=== PATIENT | male | born 1945 | race Two or more races ===

== ENCOUNTER 2024-08-06 14:06 | Emergency (ER) | payer MEDICARE, SELFPAY ==
[2024-08-06 14:24] VITALS: BP 107/66; PULSE 73; RESP 18; TEMP 36.8; O2SAT 99
--- NOTE | 2024-08-06 14:31 | XR_ITS ---
Examination: Foot bilateral, 6 views Technique: AP, oblique, lateral views each foot total 6 views Date and time of exam: August 06, 2024 1436 hrs. Indications: Redness swelling and pain involving both feet this week Findings: Significant osteopenia Soft tissue vascular calcification Early cortical bone erosions involving the plantar surface of both the right and left calcaneus, clinical correlation advised Ossification in the plantar fascia right foot No pathologic fracture Impression: Early cortical bone erosions involving plantar surface both right and left calcaneus, consider elective MRI right and left foot follow-up
--- NOTE | 2024-08-06 14:31 | XR_ITS ---
Examination:Right hip AP, lateral, AP pelvis 3 views Technique: Hip AP lateral, AP pelvis, 3 views Exam date and time:24 at 1464 hours Indications: Right hip redness swelling and pain this week Findings: Healed right hip fracture compared with March 22, 2024 Prominent osteopenia Moderate narrowing left hip joint Satisfactory position right femoral janna Impression: Healed right hip fracture No victorino cortical bone destruction Consider CT scan pelvis without contrast follow-up as clinically warranted.
--- NOTE | 2024-08-06 14:32 | PD.EDRME ---
Rapid Medical Screening Exam RME Arrival date/time: 08/06/24 14:06 79-year-old male insulin-dependent diabetic presents emergency department today with family member who reports patient has wounds to bilateral feet and right hip Chief Complaint: Wound/Laceration Vital signs: Vital Signs Temperature 98.3 F 08/06/24 14:24 Pulse Rate 73 08/06/24 14:24 Respiratory Rate 18 08/06/24 14:24 Blood Pressure 107/66 08/06/24 14:24 Pulse Oximetry (%) 99 08/06/24 14:24 Oxygen Delivery Method Room Air 08/06/24 14:24
[2024-08-06 15:25] LABS: Lactate (Lactic Acid) 0.8 mMol/L (0.4-2.0)
[2024-08-06 15:33] LABS: Basophils % (Auto) 0 % (0-2.5); Eosinophils # (Auto) 0.2 Thou/mm3 (0.0-0.5); Eosinophils % (Auto) 2 % (0-10); Hematocrit 30.3 % (41.0-53.0); Hemoglobin 9.9 g/dL (13.5-16.0); Immature Granulocytes % (Auto) 1 % (0-0); Immature Granulocytes Auto 0.04 Thou/mm3 (0.00-0.00); Lymphocytes # (Auto) 1.9 Thou/mm3 (1.0-4.8); Lymphocytes % (Auto) 24 % (10-50); Mean Corpuscular HGB Conc 32.7 g/dl (31.0-37.0); Mean Corpuscular Hemoglobin 28.4 pg (25.0-35.0); Mean Corpuscular Volume 87 fL (80-100); Monocytes # (Auto) 0.4 Thou/mm3 (0.0-0.8); Monocytes % (Auto) 5 % (0-12); Neutrophils # (Auto) 5.3 Thou/mm3 (1.8-7.7); Neutrophils % (Auto) 68 % (37-80); Nucleated Red Blood Cell % 0 /100 WBC (0); Platelet Count 275 Thou/mm3 (140-440); RDW Standard Deviation 47.6 fL (35.1-43.9); Red Blood Count 3.48 Miln/mm3 (4.50-5.90); White Blood Count 7.8 Thou/mm3 (3.8-10.6)
[2024-08-06 15:55] LABS: Alanine Aminotransferase 13 U/L (10-49); Albumin, Serum 3.3 gm/dL (3.4-4.8); Albumin/Globulin Ratio 0.8 (1.2-2.2); Alkaline Phosphatase 105 U/L (46-116); Anion Gap 6 (7-16); Aspartate Amino Transferase 21 U/L (0-34); BUN/Creatinine Ratio 17 Ratio (12-20); Bilirubin,Total 0.4 mg/dL (0.3-1.2); Blood Urea Nitrogen 10 mg/dL (9-23); Calcium 8.6 mg/dL (8.3-10.6); Calcium (Corrected) 9.2 mg/dL (8.5-10.1); Carbon Dioxide 27.9 mMol/L (20.0-31.0); Chloride 106 mMol/L (98-107); Creatinine (Component) 0.6 mg/dL (0.6-1.3); Globulin 3.9 gm/dL (2.3-3.5); Glucose 114 mg/dL (74-106); Osmolality,Calculated 279 (275-295); Potassium 4.2 mMol/L (3.4-5.1); Procalcitonin 0.15 ng/ml (0.0-0.49); Sodium 140 mMol/L (136-145); Total Protein 7.2 gm/dL (5.7-8.2); eGFR > 60 See Note
[2024-08-06 16:00] LABS: Sed Rate (ESR) 71 mm/hr (0-20)
[2024-08-06 16:38] VITALS: BP 130/78; PULSE 61; RESP 16; TEMP 36.5; O2SAT 99
--- NOTE | 2024-08-18 03:35 | PD.EDADULT ---
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 This has been chronic since he was a intermediate after stroke he and his family members have been trying to care for him at home. He has had his first visit with his wound care nurse which noted these lesions and sent him to the emergency department for assessment for a possible infection of the wounds. Related Data Home Medications ?Medication ?Instructions ?Recorded ?Confirmed insulin degludec 100 unit/mL (3 10 unit subcut HS 05/24/19 03/19/24 mL) subcutaneous pen (Tresiba FlexTouch U-100 insulin) losartan 50 mg tablet 25 mg PO QDAY 05/24/19 03/19/24 Previous Rx's ?Medication ?Instructions ?Recorded levofloxacin 500 mg tablet 500 mg PO QDAY #14 tabs 08/06/24 Allergies Allergy/AdvReac Type Severity Reaction Status Date / Time Penicillins Allergy Verified 08/06/24 14:53 Review of Systems Review of Systems Systems Reviewed: All systems reviewed, normal except as documented ED Exam Narrative Physical exam: GENERAL APPEARANCE: Awake and alert, unable to answer pointed questions to assess orientation, bedbound, contractions, significant protein calorie malnutrition and muscle wasting, no acute distress. HEENT: NC, AT. MMM. EOMI, clear conjunctiva, oropharynx clear. NECK: Supple without lymphadenopathy. No stiffness or restricted ROM. HEART: Normal rate and regular rhythm, normal S1/S1, no m/r/g LUNGS: CTAB, moving air well. No crackles or wheezes are heard. ABDOMEN: Scaphoid, soft, nontender, nondistended with good bowel sounds heard. BACK: No midline C/T/L spine pain or deformity, No CVAT, no obvious deformity. EXTREMITIES: Without cyanosis, clubbing or edema. MUSCULOSKELETAL: Significant flexion contractures of his elbows hips and knees with limited range of motion NEUROLOGICAL: Grossly nonfocal. Alert and oriented, moving all 4 extremities. CN not formally tested but appear grossly intact. Observed to ambulate with normal gait. Skin: Stage II decubiti of the bilateral hips with pressure vesicles. Right hip with a 3 cm stage II decubitus ulcer. Course Quality Measures none Orders Category Date Time Status XR foot comp BI min 3V Stat Exams 08/06/24 14:31 Completed XR hip RT w pelvis 2-3V Stat Exams 08/06/24 14:31 Completed Blood Culture (Lab) Stat Lab 08/06/24 15:20 Completed CBC Stat Lab 08/06/24 15:20 Completed CMP [Comprehensive Metabolic Panel] Stat Lab 08/06/24 15:20 Completed CRP [C-Reactive Protein] Stat Lab 08/06/24 15:20 Completed ESR [Sed Rate (ESR)] Stat Lab 08/06/24 15:20 Completed Lactic Acid [Lactate (Lactic Acid)] Stat Lab 08/06/24 15:20 Completed Procalcitonin Stat Lab 08/06/24 15:20 Completed Vital Signs Vital signs: Vital Signs Temperature 98.3 F 08/06/24 14:24 Pulse Rate 73 08/06/24 14:24 Respiratory Rate 18 08/06/24 14:24 Blood Pressure 107/66 08/06/24 14:24 Pulse Oximetry (%) 99 08/06/24 14:24 Oxygen Delivery Method Room Air 08/06/24 14:24 MDM Patient data External records reviewed:: [facility] previous records Clinical information provided by:: patient Social determinants that could affect healthcare access:: none Patient has the following chronic illnesses:: Insulin-dependent diabetes, hypertension How is presenting disease/condition affected by chronic disease/condition?: uneffected by Evaluation data The following diagnostics were reviewed and interpreted by me:: lab results Lab and/or radiology exams considered but not ordered:: As per narrative Interpretation Summary: None Medications Medications considered but not ordered:: None Medication administrations:: None Consultations Consultation(s) initiated? (list below): No Diagnosis Differential Diagnosis ED Complaint MDM: Stasis pressure ulcers, cellulitis, abscess, osteomyelitis Most likely diagnosis given after review of the tests above:: See below Admission Indicated Admission indicated?: not indicated Explain why admission is indicated or not indicated:: As per narrative Admission Request Was there a request for admission?: No Disposition Plan Disposition Plan: Discharge Discharge Attestation Discharge Attestation: The patient and all family members were given an opportunity to ask questions and understood the discharge instructions. Discharge instructions specifically effects, indications for sooner follow up or return to the emergency department, and the expected course of current diagnosis. Patient condition: Stable Medical Decision Making MDM Narrative MDM Narrative: Mr. Burch is bedbound with advanced decubitus ulcers to his bilateral heels and his right hip was sent by his first visit home health nurse for assessment for possible wound infection. Both wounds appear to have some fluid buildup collection within its deep tissue spaces. Otherwise patient is not ill-appearing, nor does he have a fever. Laboratory testing was sent via the RME process shows no acute findings and is significant for a normal white blood cell count, a mildly elevated CRP, and a normal procalcitonin. X-ray of the bilateral feet were sent via the RME process which shows erosion and changes to the bony cortex of both of his heels suggestive of chronic osteomyelitis. There is no foreign bodies, fractures or dislocation on my interpretation. I reviewed the radiology interpretation and agree. X-ray of the hip also shows no acute findings. As this is now visible and apparent on x-ray it is consistent with a chronic osteomyelitis. Laboratory testing shows no signs of systemic infection, or bacteremia given he has normal white blood cell count and normal procalcitonin. This point he likely does require long-term antibiotics and can be started on oral Levaquin and to follow-up closely with wound care/podiatry. I have explained to the family members that there is an expectation that the antibiotic can be for several weeks, therefore he will be prescribed 14 days of Levaquin to start and to follow-up closely with his primary care provider for any possible extension of the antibiotic duration. Differential Diagnosis Differential Diagnosis: Stasis pressure ulcers, cellulitis, abscess, osteomyelitis Lab Data 08/06/24 15:20 08/06/24 15:20 Labs: Lab Results 08/06/24 Range/Units 15:20 WBC 7.8 (3.8-10.6) Thou/mm3 RBC 3.48 L (4.50-5.90) Miln/mm3 Hgb 9.9 L (13.5-16.0) g/dL Hct 30.3 L (41.0-53.0) % MCV 87 (80-100) fL MCH 28.4 (25.0-35.0) pg MCHC 32.7 (31.0-37.0) g/dl RDW Std Deviation 47.6 H (35.1-43.9) fL Plt Count 275 (140-440) Thou/mm3 Neut % (Auto) 68 (37-80) % Lymph % (Auto) 24 (10-50) % Mcdonough % (Auto) 5 (0-12) % Eos % (Auto) 2 (0-10) % Baso % (Auto) 0 (0-2.5) % Neut # (Auto) 5.3 (1.8-7.7) Thou/mm3 Lymph # (Auto) 1.9 (1.0-4.8) Thou/mm3 Mcdonough # (Auto) 0.4 (0.0-0.8) Thou/mm3 Eos # (Auto) 0.2 (0.0-0.5) Thou/mm3 Baso # (Auto) 0.0 (0.0-0.2) Thou/mm3 Immature Gran # (Auto) 0.04 H (0.00-0.00) Thou/mm3 Absolute Nucleated RBC 0.00 (0.00-0.00) Thou/mm3 Immature Gran % 1 H (0-0) % Nucleated RBC % 0 (0) /100 WBC ESR 71 H (0-20) mm/hr Sodium 140 (136-145) mMol/L Potassium 4.2 (3.4-5.1) mMol/L Chloride 106 (98-107) mMol/L Carbon Dioxide 27.9 (20.0-31.0) mMol/L Anion Gap 6 L (7-16) BUN 10 (9-23) mg/dL Creatinine 0.6 (0.6-1.3) mg/dL Estim Creat Clear Calc Not Performed. eGFR > 60 (60 - ) See Note BUN/Creatinine Ratio 17 (12-20) Ratio Glucose 114 H (74-106) mg/dL Calculated Osmolality 279 (275-295) Lactic Acid 0.8 (0.4-2.0) mMol/L Calcium 8.6 (8.3-10.6) mg/dL Corrected Calcium 9.2 (8.5-10.1) mg/dL Total Bilirubin 0.4 (0.3-1.2) mg/dL AST 21 (0-34) U/L ALT 13 (10-49) U/L Alkaline Phosphatase 105 (46-116) U/L C-Reactive Prot, Quant 7.0 H (0.0-0.9) mg/dL Total Protein 7.2 (5.7-8.2) gm/dL Albumin 3.3 L (3.4-4.8) gm/dL Globulin 3.9 H (2.3-3.5) gm/dL Albumin/Globulin Ratio 0.8 L (1.2-2.2) Procalcitonin 0.15 (0.0-0.49) ng/ml Discharge Plan Plan Patient Disposition: HOME (Self Care) Prescriptions/Referrals Prescriptions/Med Rec: New levofloxacin 500 mg tablet 500 mg PO QDAY Qty: 14 0RF No Action losartan 50 mg Tablet 25 mg PO QDAY insulin degludec [Tresiba FlexTouch U-100] 100 unit/mL (3 mL) Insulin Pen 10 unit SUBCUT HS Referrals: No Primary/Family,Physician [Primary Care Provider] - In 1 week Problem List Clinical Impression: Osteomyelitis, chronic, ankle or foot, Decubitus ulcer of heel, bilateral, Decubitus ulcer of hip Patient/Caregiver Discharge Instructions Education Materials: Osteomyelitis Dc, ED Pressure Injury Additional Instructions: Realice un seguimiento con quach m?dico de atenci?n primaria en hailey semana para hailey posible derivaci?n a un pod?logo y el cuidado de la herida. Dado que comenz? con antibi?ticos para la infecci?n cr?yadira del young?n, realice un seguimiento con quach m?dico de atenci?n primaria para controlar quach tratamiento con antibi?ticos. Puede regresar al departamento de emergencias antes si los s?ntomas empeoran o si nota alg?n problema nuevo y preocupante. Print Language: Pashto Stand Alone Forms: Jocelyn Award Info., Patient Portal Info Letter
== END 2024-08-06 17:25 | disposition home or self-care (01) ==
PROVIDERS: Nurse Practitioner Primary Care; Emergency Provider Emergency Medicine
DX: M86.672 Other chronic osteomyelitis, left ankle and foot (principal); M86.671 Other chronic osteomyelitis, right ankle and foot; L89.622 Pressure ulcer of left heel, stage 2; L89.612 Pressure ulcer of right heel, stage 2
CPT/HCPCS: 36415; 73502; 73630; 80053; 83605; 84145; 85025; 85652; 86140; 87040; 99283